=== PATIENT | male | born 1950 | race Caucasian/White ===

== ENCOUNTER 2023-04-22 10:31 | Inpatient (IN) ==
[2023-04-22] MEDS ORDERED: Lactated Ringers 1000 ml BAG 1,000 ML IV ONE ×3 (10:53→11:33)
[2023-04-22 11:12] LABS: ABS Lymphocytes 0.5 10^3/uL (1.0-4.8); ABS Monocytes 0.5 10^3/uL (0.0-1.1); ABS Neutrophils 8.8 10^3/uL (1.5-7.6); Hematocrit 49.3 % (38-53); Hemoglobin 16.1 g/dL (13.2-16.3); Lymphocyte % 4.8 %; Mean Corpuscular Hemoglobin 31.9 pg (27-33); Mean Corpuscular Hgb Conc 32.7 g/dL (31-36); Mean Corpuscular Volume 97.5 fL (80-97); Mean Platelet Volume 8.9 fL (7.5-11.2); Platelet Count 287 10^3/uL (150-450); Red Blood Count 5.06 10^6/uL (4.06-5.63); Red Cell Distribution Width 13.6 % (12-17); White Blood Count 9.8 10^3/uL (3.6-10.2)
[2023-04-22] MEDS ORDERED: Metoprolol Tartrate 5 mg VIAL 5 ml VIAL (1 mg/ml) ONE (11:24)
[2023-04-22 11:29] LABS: High Sens Troponin Baseline 30 pg/mL (<20)
[2023-04-22] MEDS ORDERED: Metoprolol Tartrate 5 mg VIAL 5 ml VIAL (1 mg/ml) IV ONE (11:30)
[2023-04-22] MEDS ORDERED: Ondansetron 4 mg VIAL 2 MG/ML 2 ml VIAL IV ONE (11:40)
[2023-04-22 11:47] LABS: ALT 15 U/L (7-52); AST 14 U/L (13-39); Albumin/Globulin Ratio 1.2 (1-3); Alkaline Phosphatase 99 U/L (35-149); Blood Urea Nitrogen 47 mg/dL (6-24); C Reactive Protein 4.25 mg/L (<8.01); Calcium 8.9 mg/dL (8.6-10.3); Chloride 82 mmol/L (101-111); Creatine Kinase 38 U/L (10-223); Creatinine, Serum 2.12 mg/dL (0.67-1.17); Globulin 3.4 g/dL (2-4); Potassium 4.3 mmol/L (3.5-5.0); Sodium 128 mmol/L (135-145); Total Bilirubin 0.5 mg/dL (0.2-1.0); Total Protein 7.4 g/dL (6.4-8.9); eGFR CKD-EPI 32.3 (>60)
[2023-04-22 11:49] LABS: CO2 Carbon Dioxide < 7 mmol/L (22-32); Glucose 704 mg/dL (70-100)
[2023-04-22] MEDS ORDERED: Dextrose 50% Syringe 50 ml 25 GM/50 ML SYRINGE IV PUSH PRN (11:53)
[2023-04-22 12:27] LABS: Activated Partial Thrombo Time 27.1 seconds (26.0-38.0); INR 0.97 (0.83-1.13)
[2023-04-22] MEDS: Insulin Infusion 100unit/100mL 100 UNIT/100 ML BAG IV SCH (12:34)
[2023-04-22] MEDS ORDERED: Piperacillin/Tazobac 3.375 BAG 3.375 GM/100 ML BAG IV ONE (12:38)
[2023-04-22 12:47] LABS: Urine Appearance Clear; Urine Bilirubin Negative (Negative); Urine Blood 2+ (Negative); Urine Color Yellow; Urine Glucose 3+(>=500 mg/dL) (Negative); Urine Ketones 2+ (Negative); Urine Nitrite Negative (Negative); Urine Protein 1+(30 mg/dL) (Negative); Urine Specific Gravity 1.018 (1.002-1.030); Urine Urobilinogen Negative (Negative)
[2023-04-22 12:52] LABS: Magnesium 2.5 mg/dL (1.9-2.7); Phosphorus 7.8 mg/dL (2.5-5.0)
[2023-04-22] MEDS ORDERED: Zosyn per Pharmacy NOTE FOLLOW UP SCH (13:00)
[2023-04-22] MEDS ORDERED: NORMOSOL-R pH 7.4 1000 mL BAG 1,000 ML IV SCH (13:00)
[2023-04-22 13:03] LABS: Urine Bacteria 1+ (Absent); Urine Red Blood Cell Trace(0-2/hpf) (Absent); Urine Squamous Epithelial Cell Present (Absent); Urine White Blood Cell Trace(0-5/hpf) (Absent)
[2023-04-22] MEDS: Potassium Chloride IV 40 MEQ in Lactated Ringers 1000 ml BAG 1,000 ML IVPB SCH ×2 (13:06→18:48)
[2023-04-22] MEDS ORDERED: Vancomycin 1,500 MG in NS 0.9% 250 ml 250 ML IVPB ONE (13:30)
[2023-04-22] MEDS ORDERED: Metoprolol Tartrate 5 mg VIAL 5 ml VIAL (1 mg/ml) IV PRN (14:03)
[2023-04-22 14:19] LABS: Blood Urea Nitrogen 45 mg/dL (6-24); CO2 Carbon Dioxide < 7 mmol/L (22-32); Calcium 8.5 mg/dL (8.6-10.3); Chloride 86 mmol/L (101-111); Creatinine, Serum 1.81 mg/dL (0.67-1.17); Glucose 671 mg/dL (70-100); Magnesium 2.5 mg/dL (1.9-2.7); Phosphorus 6.4 mg/dL (2.5-5.0); Potassium 4.3 mmol/L (3.5-5.0); Sodium 129 mmol/L (135-145)
[2023-04-22] MEDS: Cefepime 2 GM in Dextrose 2 GM/50 ML BAG IV SCH (14:25)
[2023-04-22] MEDS ORDERED: Lidocaine 2% JELLY 6 ML Topical TOPICAL ONE (14:46)
[2023-04-22] MEDS ORDERED: Vancomycin per Pharmacy 1 EA NOTE FOLLOW UP PRN (14:52)
[2023-04-22] MEDS ORDERED: Ondansetron 4 mg VIAL 2 MG/ML 2 ml VIAL IV PRN (15:10)
[2023-04-22] MEDS ORDERED: metroNIDAZOLE IV 500 MG/100ML 500 MG/100 ML BAG IVPB SCH (15:30)
[2023-04-22] MEDS ORDERED: Enoxaparin 40 MG/0.4 ML SYR SUBCUT SCH (17:00)
[2023-04-22 17:18] LABS: Calcium 8.3 mg/dL (8.6-10.3); Creatinine, Serum 1.63 mg/dL (0.67-1.17); Magnesium 2.3 mg/dL (1.9-2.7); Phosphorus 2.9 mg/dL (2.5-5.0); Potassium 3.6 mmol/L (3.5-5.0); eGFR CKD-EPI 44.2 (>60)
[2023-04-22] MEDS ORDERED: D10W 1000 ml BAG 1,000 ML IV SCH (19:00)
[2023-04-22] MEDS ORDERED: Metoclopramide 5 MG/ML VIAL (10 mg) IV SLOW PU PRN (19:01)
[2023-04-22] MEDS ORDERED: Magnesium Sulfate 2 gm BAG 2 GM/50 ML BAG IVPB ONE (19:03)
[2023-04-22] MEDS ORDERED: Potassium & Sodium Phos 250 mg = 1 PACKET PO ONE (19:03)
[2023-04-22] MEDS: Vancomycin 750 MG in NS 0.9% 250 ML IVPB SCH ×2 (19:44→20:41)
[2023-04-22] MEDS: Erythromycin Lactobionate IV 250 MG in NS 0.9% 100 ml BAG 100 ML IVPB SCH (20:35)
[2023-04-22] MEDS: D10W 1000 ml BAG 1,000 ML IV SCH (21:49)
[2023-04-22 21:58] LABS: Calcium 8.3 mg/dL (8.6-10.3); Creatinine, Serum 1.28 mg/dL (0.67-1.17); Magnesium 2.7 mg/dL (1.9-2.7); Phosphorus 1.8 mg/dL (2.5-5.0); Potassium 4.4 mmol/L (3.5-5.0); eGFR CKD-EPI 59.1 (>60)
[2023-04-23] MEDS: Potassium Chloride IV 40 MEQ in Lactated Ringers 1000 ml BAG 1,000 ML IVPB SCH ×3 (00:09→10:37)
[2023-04-23] MEDS: Insulin Infusion 100unit/100mL 100 UNIT/100 ML BAG IV SCH (00:35)
[2023-04-23 00:39] LABS: Calcium 8.2 mg/dL (8.6-10.3); Creatinine, Serum 1.18 mg/dL (0.67-1.17); Magnesium 2.4 mg/dL (1.9-2.7); Phosphorus 1.4 mg/dL (2.5-5.0); Potassium 3.8 mmol/L (3.5-5.0); eGFR CKD-EPI 65.2 (>60)
[2023-04-23 00:51] LABS: Venous Bicarbonate HCO3 24.3 mmol/L (24-28)
[2023-04-23] MEDS: Cefepime 2 GM in Dextrose 2 GM/50 ML BAG IV SCH ×2 (01:15→12:15)
[2023-04-23] MEDS: Erythromycin Lactobionate IV 250 MG in NS 0.9% 100 ml BAG 100 ML IVPB SCH ×3 (03:55→20:40)
[2023-04-23 05:03] LABS: Calcium 8.1 mg/dL (8.6-10.3); Creatinine, Serum 0.99 mg/dL (0.67-1.17); Magnesium 2.3 mg/dL (1.9-2.7); Phosphorus 1.5 mg/dL (2.5-5.0); Potassium 3.6 mmol/L (3.5-5.0); eGFR CKD-EPI 80.4 (>60)
[2023-04-23] MEDS: D10W 1000 ml BAG 1,000 ML IV SCH (05:09)
[2023-04-23] MEDS: Vancomycin 750 MG in NS 0.9% 250 ML IVPB SCH ×2 (05:10→16:57)
[2023-04-23] MEDS ORDERED: Dextrose 50% Syringe 50 ml 25 GM/50 ML SYRINGE IV PUSH PRN ×2 (05:52→05:54)
[2023-04-23] MEDS ORDERED: Insulin GLARGINE 100 un/ml 10 ml VIAL SUBCUT SCH ×2 (06:45→09:00)
[2023-04-23 08:53] LABS: Anion Gap 11 mmol/L (2-16); Blood Urea Nitrogen 34 mg/dL (6-24); CO2 Carbon Dioxide 21 mmol/L (22-32); Calcium 7.6 mg/dL (8.6-10.3); Chloride 99 mmol/L (101-111); Creatinine, Serum 0.94 mg/dL (0.67-1.17); Glucose 191 mg/dL (70-100); Magnesium 2.3 mg/dL (1.9-2.7); Sodium 131 mmol/L (135-145); eGFR CKD-EPI 85.6 (>60)
[2023-04-23 09:04] LABS: Potassium, Whole Blood 4.6 mmol/L (3.4-4.5)
[2023-04-23] MEDS ORDERED: Insulin GLARGINE 100 un/ml 10 ml VIAL SUBCUT ONE (10:13)
[2023-04-23] MEDS ORDERED: Lactated Ringers 1000 ml BAG 500 ML IV ONE ×2 (10:13→10:17)
[2023-04-23 12:29] LABS: Calcium 7.8 mg/dL (8.6-10.3); Creatinine, Serum 0.98 mg/dL (0.67-1.17); Magnesium 2.3 mg/dL (1.9-2.7); Phosphorus 1.5 mg/dL (2.5-5.0); eGFR CKD-EPI 81.4 (>60)
[2023-04-23] MEDS ORDERED: Digoxin IV 0.5 MG/2 ML AMP (0.25 MG/ML) IV SLOW PU ONE (13:40)
[2023-04-23] MEDS: Insulin GLARGINE 100 un/ml 10 ml VIAL SUBCUT SCH (13:55)
[2023-04-23] MEDS ORDERED: Lactated Ringers 1000 ml BAG 500 ML IV SCH (14:00)
[2023-04-23 16:42] LABS: Calcium 7.4 mg/dL (8.6-10.3); Creatinine, Serum 0.88 mg/dL (0.67-1.17); Magnesium 2.2 mg/dL (1.9-2.7); Phosphorus 1.8 mg/dL (2.5-5.0); Potassium 3.8 mmol/L (3.5-5.0); eGFR CKD-EPI 90.8 (>60)
[2023-04-23] MEDS: Metoclopramide 5 MG/ML VIAL (10 mg) IV SLOW PU PRN (17:30)
[2023-04-23] MEDS: Ondansetron ODT 4 mg TAB 4 MG TAB SL PRN (21:19)
[2023-04-24] MEDS: Metoclopramide 5 MG/ML VIAL (10 mg) IV SLOW PU PRN (00:34)
[2023-04-24] MEDS: dilTIAZem 30 MG TAB PO SCH ×2 (00:34→05:11)
[2023-04-24] MEDS: Cefepime 2 GM in Dextrose 2 GM/50 ML BAG IV SCH (02:14)
[2023-04-24] MEDS: Erythromycin Lactobionate IV 250 MG in NS 0.9% 100 ml BAG 100 ML IVPB SCH ×2 (04:07→15:19)
[2023-04-24] MEDS ORDERED: Vancomycin Trough Check NOTE FOLLOW UP ONE (05:30)
[2023-04-24] MEDS: Ondansetron ODT 4 mg TAB 4 MG TAB SL PRN (05:53)
[2023-04-24 05:56] LABS: ABS Lymphocytes 1.4 10^3/uL (1.0-4.8); ABS Monocytes 1.2 10^3/uL (0.0-1.1); ABS Neutrophils 11.5 10^3/uL (1.5-7.6); ABS Nucleated RBC 0.02 10^3/ul; Hematocrit 42.3 % (38-53); Hemoglobin 14.3 g/dL (13.2-16.3); Lymphocyte % 9.8 %; Mean Corpuscular Hemoglobin 30.9 pg (27-33); Mean Corpuscular Hgb Conc 33.7 g/dL (31-36); Mean Corpuscular Volume 91.7 fL (80-97); Mean Platelet Volume 7.7 fL (7.5-11.2); Nucleated Red Blood Cells % 0.1 %/100WBC (0.0-0.8); Platelet Count 165 10^3/uL (150-450); Red Blood Count 4.62 10^6/uL (4.06-5.63); Red Cell Distribution Width 12.9 % (12-17); White Blood Count 14.1 10^3/uL (3.6-10.2)
[2023-04-24 06:43] LABS: Calcium 7.7 mg/dL (8.6-10.3); Creatinine, Serum 0.76 mg/dL (0.67-1.17); Magnesium 2.2 mg/dL (1.9-2.7); Phosphorus 1.8 mg/dL (2.5-5.0); Potassium 3.6 mmol/L (3.5-5.0); eGFR CKD-EPI 94.9 (>60)
[2023-04-24] MEDS: Vancomycin 750 MG in NS 0.9% 250 ML IVPB SCH (08:01)
[2023-04-24] MEDS: Insulin GLARGINE 100 un/ml 10 ml VIAL SUBCUT SCH (08:27)
[2023-04-24] MEDS ORDERED: Insulin GLARGINE 100 un/ml 10 ml VIAL SUBCUT SCH (09:00)
[2023-04-25 06:04] LABS: ABS Lymphocytes 1.5 10^3/uL (1.0-4.8); ABS Monocytes 0.8 10^3/uL (0.0-1.1); ABS Neutrophils 6.8 10^3/uL (1.5-7.6); Hematocrit 43.2 % (38-53); Hemoglobin 14.7 g/dL (13.2-16.3); Lymphocyte % 16.2 %; Mean Corpuscular Hemoglobin 31.1 pg (27-33); Mean Corpuscular Volume 91.5 fL (80-97); Platelet Count 165 10^3/uL (150-450); Red Blood Count 4.72 10^6/uL (4.06-5.63); Red Cell Distribution Width 12.8 % (12-17); White Blood Count 9.1 10^3/uL (3.6-10.2)
[2023-04-25 06:35] LABS: Creatinine, Serum 0.66 mg/dL (0.67-1.17); Magnesium 2.2 mg/dL (1.9-2.7); Potassium 3.3 mmol/L (3.5-5.0)
[2023-04-25] MEDS ORDERED: Potassium Chlor 20 meq TAB.ER PO ONE (07:33)
[2023-04-25] MEDS: Ondansetron ODT 4 mg TAB 4 MG TAB SL PRN (07:56)
[2023-04-25] MEDS: Insulin GLARGINE 100 un/ml 10 ml VIAL SUBCUT SCH (08:22)
[2023-04-26] MEDS: Insulin GLARGINE 100 un/ml 10 ml VIAL SUBCUT SCH (09:05)
[2023-04-26] MEDS ORDERED: Insulin GLARGINE 100 un/ml 10 ml VIAL SUBCUT ONE (09:43)
[2023-04-26 10:44] LABS: ABS Lymphocytes 1.1 10^3/uL (1.0-4.8); ABS Monocytes 0.7 10^3/uL (0.0-1.1); ABS Neutrophils 6.5 10^3/uL (1.5-7.6); Hematocrit 42.4 % (38-53); Hemoglobin 14.6 g/dL (13.2-16.3); Lymphocyte % 13.3 %; Mean Corpuscular Hemoglobin 31.3 pg (27-33); Mean Corpuscular Hgb Conc 34.3 g/dL (31-36); Mean Corpuscular Volume 91.3 fL (80-97); Platelet Count 170 10^3/uL (150-450); Red Blood Count 4.65 10^6/uL (4.06-5.63); White Blood Count 8.3 10^3/uL (3.6-10.2)
[2023-04-26 10:59] LABS: Calcium 7.9 mg/dL (8.6-10.3); Creatinine, Serum 0.68 mg/dL (0.67-1.17); Magnesium 2.1 mg/dL (1.9-2.7); Potassium 3.3 mmol/L (3.5-5.0); eGFR CKD-EPI 98.1 (>60)
[2023-04-26] MEDS ORDERED: Potassium Chlor 20 meq TAB.ER PO ONE (11:05)
[2023-04-26] MEDS: Ondansetron ODT 4 mg TAB 4 MG TAB SL PRN (16:38)
[2023-04-27 08:57] LABS: ABS Lymphocytes 1.7 10^3/uL (1.0-4.8); ABS Monocytes 0.8 10^3/uL (0.0-1.1); ABS Neutrophils 5.5 10^3/uL (1.5-7.6); ABS Nucleated RBC 0.02 10^3/ul; Eosinophil % 0.4 %; Hematocrit 40.5 % (38-53); Lymphocyte % 21.3 %; Mean Corpuscular Hemoglobin 31.5 pg (27-33); Mean Corpuscular Hgb Conc 34.5 g/dL (31-36); Mean Corpuscular Volume 91.4 fL (80-97); Nucleated Red Blood Cells % 0.2 %/100WBC (0.0-0.8); Platelet Count 187 10^3/uL (150-450); Red Blood Count 4.43 10^6/uL (4.06-5.63); Red Cell Distribution Width 12.9 % (12-17); White Blood Count 8.1 10^3/uL (3.6-10.2)
[2023-04-27] MEDS ORDERED: Insulin GLARGINE 100 un/ml 10 ml VIAL SUBCUT SCH (09:00)
[2023-04-27 09:23] LABS: Calcium 7.8 mg/dL (8.6-10.3); Creatinine, Serum 0.62 mg/dL (0.67-1.17); Potassium 3.4 mmol/L (3.5-5.0); eGFR CKD-EPI 100.9 (>60)
[2023-04-27 10:25] VITALS: BP 116/67
[2023-04-27] MEDS ORDERED: Potassium Chlor 20 meq TAB.ER PO ONE (10:54)
== END 2023-04-27 14:30 | disposition home or self-care (01) | DRG 420 ==
LOC: ED 10:31 → EDHOLD 11:56 → ICU 13:00 → MEDTELE 04-23 19:54
PROVIDERS: ADMIT Internal Medicine Pulmonary Disease; ATTEND Internal Medicine